=== PATIENT | male | born 1965 | race Caucasian/White ===

== ENCOUNTER 2021-08-23 19:03 | Emergency (ER) | payer SELFPAY ==
[2021-08-23 19:27] VITALS: BP 155/76; PULSE 108; RESP 20; TEMP 36.8; O2SAT 99
--- NOTE | 2021-08-23 19:35 | ED.LOWEXIN ---
HPI - Extremity Injury (Lower) General Chief Complaint: Extremity Problem,Nontraumatic Stated Complaint: Lt Foot Pain Source: patient Mode of arrival: ambulatory Limitations: no limitations History of Present Illness HPI Narrative: Patient is a 55-year-old male who presents complaining of left great toe pain. He reports toe infection x3 days. He reports possible ingrown toenail. He reports redness, tenderness and drainage. Patient reports a history of diabetes. He denies taking any mlhz-mmb-qaeduvr pain medications prior to arrival. Review of Systems Review of Systems: CONSTITUTIONAL: Denies fever, chills, or sweats. EYES: Denies visual changes, redness, or discharge. ENT: Denies rhinorrhea, congestion, sore throat, or otalgia. CARDIOVASCULAR: Denies chest pain, palpitations, or edema. RESPIRATORY: Denies cough or dyspnea. GASTROINTESTINAL: Denies abdominal pain, nausea, vomiting, or diarrhea. GENITOURINARY: Denies dysuria or hematuria. SKIN: Left great toe infection MUSCULOSKELETAL: Denies back pain, joint pain, or myalgia. NEUROLOGIC: Denies headache, numbness, dizziness, or weakness. PSYCHIATRIC: Denies anxiety or depression. [facility] Past Medical History Medical History (Updated 08/23/21 @ 19:47 by TREVOR Mcfarland) Diabetes Social History Social History (Updated 08/23/21 @ 19:43 by TREVOR Mcfarland) Smoking status: Never smoker Alcohol intake: never Substance use: never Living arrangements: with family Occupation/Education: occupation Gender identity (if verbalized by the patient): Male Comments At the time of signature, I have reviewed and agree with nursing past medical, surgical, social, and family history unless otherwise noted. Please see nursing chart for further information. There is no relevant family history pertinent to the presenting complaint. Exam Narrative: GENERAL: Well-appearing, well-nourished, and in no acute distress. HEAD: Normocephalic, atraumatic. EYES: EOMI. No redness or drainage. Conjunctiva are normal. ENT: Mucous membranes pink and moist. CHEST: No respiratory distress. HEART: Regular rate and rhythm. EXTREMITIES: Normal range of motion. SKIN: Warm, erythema, edema and tenderness to left great toe, drainage noted. NEURO: No focal deficits. Alert and oriented x3. Gait steady. PSYCH: Normal affect. No signs of depression or anxiety. Course Vital Signs Vital signs: Vital Signs Temperature 36.8 C 08/23/21 19:27 Pulse Rate 108 H 08/23/21 19:27 Respiratory Rate 20 08/23/21 19:27 Blood Pressure 155/76 H 08/23/21 19:27 Pulse Oximetry 99 08/23/21 19:27 Temperature 36.8 C 08/23/21 19:27 Pulse Rate 108 H 08/23/21 19:27 Respiratory Rate 20 08/23/21 19:27 Blood Pressure 155/76 H 08/23/21 19:27 Pulse Oximetry 99 08/23/21 19:27 Reviewed. Patient has been instructed to follow-up with his PCP regarding his blood pressure. Transfer Transfered to: [facility] Transportation: Other (Private vehicle, driving) Transfer rationale: Higher level of care Accepting physician: Dr. Odonnell Transfer comments: Patient transferred by private vehicle to [facility] for further evaluation of left great toe infection. Patient is aware the need to go to the emergency department immediately. Patient agrees with plan of care. Patient is stable for transfer. MDM - Extremity Injury (Lower) MDM Narrative Medical decision making narrative: Patient to have further evaluation of left great toe at [facility]. Family requested [facility] as patient's works there. Patient reports that he will go directly to hospital at this time for further evaluation. Patient is stable for transfer and is aware the need for evaluation of left great toe this p.m. Differential Diagnosis Differential diagnosis: Likely other (Sprain, strain, fracture, contusion, infection) Critical Care Time Critical Care Time Critical Care Time:
== END 2021-08-23 19:46 | disposition short-term general hospital (02) ==
PROVIDERS: Emergency Provider Nurse Practitioner
DX: L08.9 Local infection of the skin and subcutaneous tissue, unspecified (principal); E11.9 Type 2 diabetes mellitus without complications
CPT/HCPCS: 99212; G0463

== ENCOUNTER 2025-03-04 00:53 | Day surgery (SDC) | payer BC, SELFPAY ==
[2025-02-23 14:54] VITALS: BMI 35.4
--- NOTE | 2025-02-23 15:08 | SUR.PREOP ---
Spoke with patient in regards to Plavix. He verbalized understanding that his last dose is to be taken on 02/27/2025 and will be informed by endoscopist when to resume after procedure is done.
--- OUTSIDE RECORDS SUMMARY | 2025-03-04 00:56 | XMS_ITS | Clinical Summary ---
Author Organization [facility] Address [address] [place] [address] Care Team Providers Care Cover Machine Operator Name Role Phone Unavailable Primary Care Provider Unavailabl e Social History Tobacco Use Types Packs/Day Years Used Date Smoking Tobacco: Never Assessed Sex and Gender Information Value Date Recorded Sex Assigned at Not on file Legal Sex Male 9:12 AM CDT Gender Identity Not on file Sexual Orientation Not on file Plan of Treatment Health Maintenance Due Date Last Done Comments DIABETES ANNUAL FOOT EXAM 1984 DIABETES MICROALBUMIN ANNUAL SCREEN 1984 LDL CHOLESTEROL ANNUAL 1984 DTAP/TDAP/TD VACCINES (1 - Tdap) 1985 HEPATITIS B VACCINES (1 of 3 - 19+ 3-dose series) 1985 COLORECTAL SCREENING 12/17/2011 Colorectal Cancer Screening 12/17/2011 FIT-DNA Q 3 years 12/17/2011 FIT/FOBT Q 1 year 12/17/2011 Flex Sig/CT Colonography Q 5 years 12/17/2011 ZOSTER VACCINE (1 of 2) 2016 DIABETES ANNUAL RETINAL EXAM 06/29/2023 06/29/2022, 06/29/2022 INFLUENZA VACCINE (#1) 2024 COVID-19 Vaccine ( season) 2024, 05/01/2021 DIABETES HBA1C Q 6 MONTHS 06/12/2025 12/10/2024, Insurance [facility] ANTH BLUE ACCESS
--- OUTSIDE RECORDS SUMMARY | 2025-03-04 00:56 | XMS_ITS | Referral Summary ---
Author Organization [facility] Address [address] [place] [address] Care Team Providers Care Control Tower Radio Operator Name Role Phone No, Physician Primary Care Provider [phone] Allergies No known active allergies Medications insulin NPH (HumuLIN N, NovoLIN N) 100 unit/mL (3 mL) pen for injection Inject 42 Units under the skin 2 (two) times a day Active insulin regular (HumuLIN R, NovoLIN R) 100 unit/mL vial for injection Inject under the skin 2 (two) times a day Sliding Scale Usually 10 units am in 10 units with dinner Active Active Problems Problem Noted Date Diagnosed Date Age-related nuclear cataract of both eyes 2021 Assessment & Plan (06/29/2022 10:39 AM CDT): See Dr. Rosales Assessment & Plan (05/04/2022 10:52 AM CDT): BCVA today 20/40 OD, BCVA 20/30 OS Released new SRx today Can f/u for CE eval in future PRN Assessment & Plan (04/27/2022 10:24 AM CDT): May be worsening after vitrectomy surgery, recommended he see his local eye doctor, for a new refraction. If this does not help it is possible that he may benefit from cataract surgery in the near future. He currently does not have a local olive knocker, will arrange for him to see optometry service at [facility] in the near future. Vitreous hemorrhage, right 02/28/2022 Overview (02/28/2022): Added automatically from request for surgery [id number] Assessment & Plan (06/29/2022 10:39 AM CDT): Status post vitrectomy surgery, doing well. Recommend observation. Assessment & Plan (04/27/2022 10:23 AM CDT): Status post vitrectomy surgery, doing well. Recommend observation. Assessment & Plan (03/29/2022 9:31 AM CDT): One week status post PPV/MP/EL/AFx to the right eye on 03/21/22. Taper pred forte (PF) by reducing it by one drop a day each week. Stop tobramycin Return to clinic in one month. Signs and symptoms of retinal detachment, tears and endophthalmitis, elevated pressure reviewed with patient. Post Op Position:None. Altitude precautions were reviewed with patient.. Assessment & Plan (03/22/2022 8:59 AM CDT): One day status post PPV/MP/EL/AFx to the right eye on 03/21/22. Doing well. Reviewed surgery and need for MS with pt. Shield operated eye, Tobramycin 4x/day, Predforte 4x/day and Taper pred forte (PF) by reducing it by one drop a day each week Return to clinic in one week. Signs and symptoms of retinal detachment, tears and endophthalmitis, elevated pressure reviewed with patient. Post Op Position:None. Altitude precautions were reviewed with patient. No strenuous activity. . Type 2 diabetes mellitus Overview (10/31/2021): Diabetes type 2 Assessment & Plan (06/29/2022 10:40 AM CDT): Status post panretinal photocoagulation to both eyes, status post vitrectomy surgery right eye. Stable today, discussed importance of blood sugar blood pressure control, and encouraged him to get a primary care doctor so that these things can be managed. Recommend follow up with Dr. Rosales in 3 months. Assessment & Plan (04/27/2022 10:22 AM CDT): Status post panretinal photocoagulation to both eyes, status post vitrectomy surgery right eye. Stable today, discussed importance of blood sugar blood pressure control, and encouraged him to get a primary care doctor so that these things can be managed. Assessment & Plan (02/27/2022 4:52 PM CDT): With persistent vitreous hemorrhage right eye despite intravitreal Eylea. Discussed PPV vs intra-vitreal injection. He is now ready to proceed with PPV surgery OD. PPV/Laser/+/-gas OD 90 min Local mac Has had COVID vaccine Risks, benefits and alternatives for surgery include by not limited to infection, bleeding, damage to the eye, loss of vision, loss of the eye,deformity, diplopia, increased IOP, cataract, need for new refraction, RD, RT, gas injection, post op positioning, altitude precautions, silicone oil placement, need for additional surgery, inflammation to one or both eyes, no guarantees were made, and the guarded prognosis was discussed with the patient. 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 Will repeat injection with Eylea today to the right eye, while waiting for PPV surgery, Risks, benefits, alternatives with the patient. Patient wished to proceed. The left eye is status post panretinal photocoagulation, appears fairly stable at this time. Importance of blood sugar and blood pressure control again reviewed with the patient. RE-EMPHASIZED -seeking a primary care doctor in the near future to get back on his insulin therapy. Assessment & Plan (01/30/2022 4:35 PM CDT): With persistent vitreous hemorrhage right eye despite intravitreal Eylea. Discussed PPV vs intra-vitreal injection. Pt wishes repeat injection with Eylea today to the right eye. Risks, benefits, alternatives with the patient. Patient wished to proceed. The left eye is status post panretinal photocoagulation, appears fairly stable at this time. Importance of blood sugar and blood pressure control again reviewed with the patient. RE-EMPHASIZED -seeking a primary care doctor in the near future to get back on his insulin therapy. Assessment & Plan (01/02/2022 4:18 PM CDT): With persistent vitreous hemorrhage right eye despite intravitreal Eylea. Discussed PPV vs intra-vitreal injection. Pt wishes repeat injection with Eylea today to the right eye. Risks, benefits, alternatives with the patient. Patient wished to proceed. The left eye is status post panretinal photocoagulation, appears fairly stable at this time. Importance of blood sugar and blood pressure control again reviewed with the patient. He will be seeking a primary care doctor in the near future to get back on his insulin therapy. Assessment & Plan (12/01/2021 9:02 AM CABIN AGENT): With persistent vitreous hemorrhage right eye despite intravitreal Eylea injection on October 31. Recommend repeat injection with Eylea today to the right eye. Risks, benefits, alternatives with the patient. Patient wished to proceed. We discussed the possibility of vitrectomy surgery however he would like to observe for now. The left eye is status post panretinal photocoagulation, appears fairly stable at this time. Assessment & Plan (11/21/2021 3:13 PM CABIN AGENT): With persistent vitreous hemorrhage right eye despite intravitreal Eylea injection on October 31. As it has been less than a month, will hold off on repeating injection will re-evaluate roughly 2 weeks time. If the vitreous hemorrhage persists will repeat injection and consider vitrectomy surgery in the right eye. Recommend additional panretinal photocoagulation to the left eye as planned. R/B/A reviewed. Pt wishes to proceed. Assessment & Plan (11/09/2021 11:10 AM CABIN AGENT): For PRP in the left eye today. Risks, benefits, alternatives reviewed the patient. Patient wished to proceed. PRP was applied left eye today without complication. I have asked him to return to see us roughly 2 weeks time, we will dilate both eyes at that time. Will add panretinal photocoagulation to the left eye at that visit. If he has persistent vitreous hemorrhage in the right eye at that visit, will inject the right eye with Eylea and plan for vitrectomy surgery in the near future. Assessment & Plan (10/31/2021 4:37 PM CABIN AGENT): Patient has a history of type 2 diabetes, has required the use of insulin for many years. Has not been able to see his primary care doctor or checked or checked his blood sugars over several years. He presents today with a few day history of decreased vision in the right eye and a vitreous hemorrhage. In the left eye there is severe diabetic retinopathy, I highly suspect there was also proliferative retinopathy in the left eye. I believe that the vitreous hemorrhage in the right eye is due to proliferative retinopathy. We discussed possibility of fluorescein angiography today to discern if there is neovascularization in the left eye, followed by anti-VEGF injection to the right eye. If the vitreous hemorrhage does not clear in the right eye he may need to have vitrectomy surgery in the right eye. If we find neovascularization on the angiogram in the left eye may need to institute anti VEGF therapy or panretinal photocoagulation to the left eye as well. We have arranged to give him a sample of Eylea to the right eye today, angiography demonstrates neovascularization of the disc in severe areas of non perfusion the periphery of the left eye. Will perform panretinal photocoagulation of the left eye in a week. Risks, benefits, alternatives to therapy were reviewed with patient. Patient wished to proceed. Social History Tobacco Use Types Packs/Day Years Used Date Smoking Tobacco: Never Smokeless Tobacco: Never AUDIT-C Answer Date Recorded Q1: How often do you have a drink containing alc ohol? 2-4 times a month 03/09/2022 Q2: How many drinks containi ng alcohol do you have on a typical day when you are drinking? 1 or 2 03/09/2022 Q3: How often do you have si x or more drinks on one occasion? Never 03/09/2022 Sex and Gender Information Value Date Recorded Sex Assigned at Not on file Legal Sex Male 4:09 AM CABIN AGENT Gender Identity Not on file Sexual Orientation Not on file Last Filed Vital Signs Vital Sign Reading Time Taken Comments Blood Pressure 110/62 03/21/2022 10:30 AM CDT Pulse 90 03/21/2022 10:30 AM CDT Temperature 36.2 C (97.2 F) 03/21/2022 10:21 AM CDT Respiratory Rate 13 03/21/2022 10:30 AM CDT Oxygen Saturation 96% 03/21/2022 10:30 AM CDT Inhaled Oxygen Concentration - - Weight 99.8 kg (220 lb) 03/09/2022 10:10 AM CDT Height 175.3 cm (5' 9) 03/09/2022 10:10 AM CDT Body Mass Index 32.49 03/09/2022 10:10 AM CDT Plan of Treatment Not on file Procedures Procedure Name Priority Date/Time Associated Diagnosis Comments EGFR STAT 10/29/2021 1:48 PM CABIN AGENT from Last 3 Months or Most Recently Relevant to Health Maintenance Results * eGFR (10/29/2021 1:48 PM CABIN AGENT) eGFR >90 90 - 130 mL/min/1. 73 m2 [facility] Comment: Interpretive Data Reference Interval Normal >/= 90 mL/min/1.73m2 Mildly decreased* 60 - 89 mL/min/1.73m2 Mildly to moderately decreased 45 - 59 mL/min/1.73m2 Moderately to severely decreased 30 - 44 mL/min/1.73m2 Severely decreased 15 - 29 mL/min/1.73m2 Kidney Failure < 15 mL/min/1.73m2 *Relative to young adult level Estimated glomerular filtration rate is determined by the 2020 CKD-EPI equation recommended by the National Kidney Foundation (A Unifying Approach to GFR Estimation: Recommendations of the NKF-ASK Task Force on Reassessing the Inclusion of Race in Diagnosing Kidney Disease, JASN 2020). The CKD-EPI equation should not be used for patients with unstable renal function and has not been validated in children and those over 70. Current interpretive data was last reviewed 2021. Blood 10/29/2021 1:48 PM CABIN AGENT 10/29/2021 2:01 PM CABIN AGENT us Marlyn Gonzalez MD LAB BLOOD ORDERA BLES Final Result [facility] Department [place] [address] from Last 3 Months or Most Recently Relevant to Health Maintenance Care Teams Control Tower Radio Operator Relationship Specialty Start Date End Date No, Physician PCP - General 03/13/22
--- OUTSIDE RECORDS SUMMARY | 2025-03-04 00:57 | XMS_ITS | Clinical Summary ---
Author Organization [facility] Address [address] [place] [address] Care Team Providers Care Sieve Maker Name Role Phone No, Physician Primary Care Provider Allergies No known active allergies Medications insulin [...] He currently does not have a local activity therapy specialist, will arrange for him to see optometry service at [facility] in the near future. Vitreous hemorrhage, right 02/28/2022 Overview (02/28/2022): Added automatically from request for surgery [id number] Assessment & Plan (06/29/2022 10:39 AM CDT): [...] therapy. Assessment & Plan (12/01/2021 9:02 AM PUNCHBOARD FILLING MACHINE OPERATOR): With persistent vitreous hemorrhage right eye despite [...] time. Assessment & Plan (11/21/2021 3:13 PM PUNCHBOARD FILLING MACHINE OPERATOR): With persistent vitreous hemorrhage right eye despite [...] proceed. Assessment & Plan (11/09/2021 11:10 AM PUNCHBOARD FILLING MACHINE OPERATOR): For PRP in the left eye today. [...] future. Assessment & Plan (10/31/2021 4:37 PM PUNCHBOARD FILLING MACHINE OPERATOR): Patient has a history of type 2 [...] reviewed with patient. Patient wished to proceed. Surgical History Surgery Date Site/Laterality Comments WISDOM TOOTH EXTRACTION Medical History Medical History Date Comments Type 2 diabetes mellitus (HCC) D iabetes type 2 Family History Medical History Relation Name Comments Cataracts Father Cataracts Mother Diabetes Mother Heart failure Mother Hypertension Mother Diabetes Sister Amblyopia Neg Hx Anesthesia problems Neg Hx Blindness Neg Hx Cancer Neg Hx Fuchs' dystrophy Neg Hx Glaucoma Neg Hx Macular degeneration Neg Hx Retinal detachment Neg Hx Strabismus Neg Hx Stroke Neg Hx Thyroid disease Neg Hx Relation Name Status Comments Father Mother Sister Social History Tobacco Use Types Packs/Day Years [...] on file Legal Sex Male 4:09 AM PUNCHBOARD FILLING MACHINE OPERATOR Gender Identity Not on file Sexual Orientation Not on file Obstetrics History Last Filed Vital Signs Vital Sign Reading [...] 03/09/2022 10:10 AM CDT Plan of Treatment Health Maintenance Due Date Last Done Comments Albumin Creatinine Ratio, Urine 1966 Colon Cancer Screening-Colonoscopy 1966 Depression Screening 1966 Hemoglobin A1C 1966 Hepatitis C Screening 1966 Prostate Cancer Screening-PSA 1966 Foot Exam 1966 Lipid Panel 1966 DTaP/Tdap/Td Vaccine (1 - Tdap) 1977 Hepatitis B Screening 1984 Regular Well Visit/Exam 18-64 1984 Pneumococcal vaccine <65 (1 of 2 - PCV) 1985 Zoster Vaccine (1 of 2) 2016 eGFR 10/29/2022 10/29/2021 Dilated Eye Exam 06/29/2023 06/29/2022, , 03/29/2022, Additional history exists Covid-19 Vaccine ( - 2023-2 5 season) 2024 11/20/2021, 05/22/2021, 05/01/2021 Influenza Vaccine (Season Ended) 2025 Procedures Procedure Name Priority Date/Time Associated Diagnosis Comments EGFR STAT 10/29/2021 1:48 PM PUNCHBOARD FILLING MACHINE OPERATOR from Last 3 Months or Most Recently Relevant to Health Maintenance Results * eGFR (10/29/2021 1:48 PM PUNCHBOARD FILLING MACHINE OPERATOR) eGFR >90 90 - 130 mL/min/1. 73 [...] last reviewed 2021. Blood 10/29/2021 1:48 PM PUNCHBOARD FILLING MACHINE OPERATOR 10/29/2021 2:01 PM PUNCHBOARD FILLING MACHINE OPERATOR us Marlyn Gonzalez MD LAB BLOOD ORDERA BLES Final Result [facility] Department [place] [address] from Last 3 Months or Most Recently Relevant to Health Maintenance Care Teams Sieve Maker Relationship Specialty Start Date End Date No, Physician PCP - General 03/13/22
--- OUTSIDE RECORDS SUMMARY | 2025-03-04 00:57 | XMS_ITS | Encounter Summary ---
Author Organization [facility] Address [address] [place] [address] Phone Care Team Providers Care Seasonal Tax Preparer Name Role Phone Scott Woodson MD Primary Care Provider [phone] No, Physician Primary Care Provider [phone] Encounter Details Date Type Department Care Team (Late st Contact Info) Description 10/29/2021 Ophth Exam [facility] [address] [place] [address] [address] [place] [address] Brett Christian MD [address] [place] [address] [place], [place] [id number] Social History Tobacco Use Types Packs/Day Years Used Date Smoking Tobacco: Never Smokeless Tobacco: Never AUDIT-C Answer Date Recorded Q1: How often do you have a drink containing alc ohol? 2-4 times a month 10/31/2021 Q2: How many drinks containi ng alcohol do you have on a typical day when you are drinking? 1 or 2 10/31/2021 Q3: How often do you have si x or more drinks on one occasion? Never 10/31/2021 Sex and Gender Information Value Date Recorded Sex Assigned at Not on file Legal Sex Male 4:09 AM ORGANIC GARDENING TEACHER Gender Identity Not on file Sexual Orientation Not on file documented as of this encounter Functional Status documented as of this encounter Plan of Treatment Not on file documented as of this encounter Visit Diagnoses Not on filedocumented in this encounter Eye Exam Visual Acuity Right eye Left eye Near cc HM PHNI 20/20 Tonometry (Tonopen, 3:12 PM) Right eye Left eye Pressure 20 18 Pupils Dark Light Shape React APD Right eye 5 3 Round Brisk None Left eye 5 3 Round Brisk None Visual Armenta Right eye Left eye Full Restrictions Total superior tempo ral, inferior temporal, superior nasal, inferior nasal deficiencies Extraocular Movement Right eye Left eye Full, Ortho Full, Ortho Neuro/Psych Oriented x3: Yes Mood/Affect: Normal Dilation Both eyes: 2.5% Phenylephrin e, 1% Tropicamide @ 4:21 PM External Exam Right eye Left eye External Normal Normal Slit Lamp Exam Right eye Left eye Lids/Lashes Normal Normal Conjunctiva/Sclera White and quiet White and amalia et Cornea Clear Clear Anterior Chamber Deep and Quiet Deep and Quiet Iris Round and reactive, no NVI Round and reactive, no NVI Lens 2+ NS, 3+ PSC 2+ NS, 2+ PSC Vitreous Normal Normal Fundus Exam Right eye Left eye Disc no view Sharp margins, n o elevation C/D Ratio - 0.4 Macula - DBH, flat attach ed Vessels - attenuated Periphery - numerous DBH 360 , hypopigmented chronic appearing scar at 9 oclock, attached Care Teams Seasonal Tax Preparer Relationship Specialty Start Date End Date Scott Woodson MD [address] [place] [address] PCP - General 10/29/21 03/12/22 No, Physician PCP - General 03/13/22 documented as of this encounter
--- OUTSIDE RECORDS SUMMARY | 2025-03-04 00:57 | XMS_ITS | Data Portability ---
Author Organization [facility] STEVENAmarilis Crews Address [address] [place] [address] Care Team Providers Care Hides Inspector Name Role Phone ADILIA CHRISTIANSON Primary Care Provider Assessment No assessment recorded. Plan of Treatment Reminders Order Date Submit Date Provider Last Modified By Organization Details Last Modified Time Details Appointments None recorde d. Lab HbA1c (hemogl obin A1c), blood 2024 025 [email or web address] In-Office Order, Internal Use Only DO Not Attach Compendium DO Not Attach Compendium, Do Not Delete/merge, [id number] 09:21:49 microal bumin/c reatini ne, mass ratio, urine 2024 025 ESTEVAN BORGES, [address] [place] [address], [address], [place], [address], 5 04:10:25 CMP, serum or plasma 2024 025 ESTEVAN BORGES, [address] [place] [address], [address], [place], [address], 5 04:10:26 HbA1c (hemogl obin A1c), blood 2023 024 [email or web address] In-Office Order, Internal Use Only DO Not Attach Compendium DO Not Attach Compendium, Do Not Delete/merge, [id number] 17:15:39 basic metabol ic 1998 panel, serum or plasma 2023 024 ESTEVANLARRY BORGES, [address] [place] [address], [address], [place], [address], 4 08:34:22 microal bumin/c reatini ne, mass ratio, urine 2023 024 ESTEVAN [facility], [address], [address], [place], [address], 4 08:34:21 Referral gastroe nterolo gist referra l - Dysphag ia to solids for >2 years, also needs screeni ng colonos copy 2024 025 [facility] Gastroenterol [facility], [address], [address], [place], [address], 5 14:53:23 endocri nology referra l - IDDM on insulin with CGM. 2023 024 dianams Wallace Referrals, [address] [facility], [place], [address], 4 09:17:31 Procedures None recorde d. Surgeries None recorde d. Imaging barium swallow study - Assess for achalas ia strictu re etc, dysphag ia to solids 2024 025 otto [facility] Scheduling, [address] [facility], [place], [address], 5 12:03:39 Medication Orders Basagla r KwikPen U-100 Insulin 100 unit/mL (3 mL) subcuta neous 2024 025 [id number], [address] , [place], [place], [id number], 5 09:30:23 insulin lispro (U-100) 100 unit/mL subcuta neous pen 2024 025 [id number], [address], [place], [place], [id number], 5 09:30:22 losarta n 25 mg tablet 2024 025 [facility] #81094, [address], [place], [place], [id number], 5 09:30:24 Ciprode x 0.3 %-0.1 % ear drops,s uspensi on 2023 025 [facility] #24984, [address], [place], [place], [id number], 5 09:15:31 Lantus Solosta r U-100 Insulin 100 unit/mL (3 mL) subcuta neous pen 2023 024 [email or web address] [facility] #02471, [address], [place], [place], [id number], 4 17:50:16 Patient TargetsNo targets recorded. Patient Instructions Encounter Date Encounter Id Patient Instructions Last Modified By Organization Details Last Modified Time 02/08/2024 [id number] I was present and available in the family medicine clinic to discuss the patient's care during the appointment and the case was discussed with me. I agree with the resident's assessment and plan as documented. While Type 1 DM not clear? Consider eval for true status of his disease. He might benefit for SGLT2 and/or GLP1, though with increase risk of hypoglycemia. HL [email or web address] Not available 02/10/2024 11:22:45 03/17/2024 [id number] Case was discussed with me in the Teach Room on date of encounter. I agree with residents assessment and plan of care as docuemented above with any exceptions/addit ions noted below if necessary. All labs/rads/consul ts to be followed by ordering provider. Arianna Lewis DO Family Medicine Physician [email or web address] Not available 03/19/2024 13:02:29 04/15/2024 [id number] I certify that I was present for case discussion in the Family Medicine preceptor room at the time of this encounter. I have reviewed the note and agree with the findings, assessment, and plan except as I have documented below. Follow up as listed. All labs/imaging/con sults to be followed by the ordering provider. Capt Juan, [facility], Staff Physician. [email or web address] Not available 04/16/2024 13:07:38 10/14/2024 [id number] A healthy lifestyle: care instructions [email or web address] Not available 10/14/2024 09:30:14 Case was discussed with me in the Teach Room on date of encounter. I agree with residents assessment and plan of care as docuemented above with any exceptions/addit ions noted below if necessary. All labs/rads/consul ts to be followed by ordering provider. Arianna Lewis DO Family Medicine Physician [email or web address] Not available 10/14/2024 09:42:27 01/14/2025 [id number] I was present and available in the Family Medicine clinic to discuss this patient's care during the appointment. I agree with the resident's assessment and plan as documented. KGR [email or web address] Not available 01/20/2025 15:28:00 Reason for Referral Endocrinology Referral for T ype 1 diabetes mellitus IDDM on insulin with CGM. IDDM on insulin with CGM. Referring Physician: Leticia Crabtree, Admissions Dean, Encounter Date: 04/15/2024 Title Clerk Referral for Dysphagia Dysphagia to solids for >2 years, also needs screening colonoscopy Dysphagia to solids for >2 years, also needs screening colonoscopy Referring Physician: Leticia Crabtree Admissions Dean, Encounter Date: 01/14/2025 Results Created Date Observation Date Name Description Value Unit Range Abnormal Flag Note LastModifiedBy Organization Detail LastModifiedTime 02/08/20 24 02/08/2024 HbA1c (hemo globi n A1c), blood HbA1c 8.7 Not Available In-Office Order Internal Use Only DO Not Attach Compendium DO Not Attach Compendium, Do Not Delete/merge, [id number] 02/08/2024 10:16:53 03/14/20 24 03/15/2024 ALBUM IN/CR EAT RATIO , RANDO M UR creatinine, urine 114.8 mg/dL notest ab. Not Available [facility] ([facility]) [address] [place], [address], 03/15/2024 08:34:21 03/14/20 24 03/15/2024 ALBUM IN/CR EAT RATIO , FRANCESCA M UR albumin, urine 24.8 ug/mL notest ab. Not Available [facility] ([facility]) [address] [place], [address], 03/15/2024 08:34:21 03/14/20 24 03/15/2024 ALBUM IN/CR EAT RATIO , RANDO M UR alb/creat ratio 22 mg/g_ creat 0-29 Jeannine l: 0 - 29 Moder ately incre ased: 30 - 300 Sever xiang incre ased: >300 Not Available [facility] ([facility]) [address] [place], [address], 03/15/2024 08:34:21 03/14/20 24 03/15/2024 BASIC METAB OLIC PANEL (7) glucose 74 mg/dL 70-99 Not Available [facility] ([facility]) [address] [place], [address], 03/15/2024 08:34:22 03/14/20 24 03/15/2024 BASIC METAB OLIC PANEL (7) BUN 20 mg/dL 6-24 Not Available [facility] ([facility]) [address] [place], [address], 03/15/2024 08:34:22 03/14/20 24 03/15/2024 BASIC METAB OLIC PANEL (7) creatinine 0.79 mg/dL 0.76-1 .27 Not Available [facility] ([facility]) [address] [place], [address], 03/15/2024 08:34:22 03/14/20 24 03/15/2024 BASIC METAB OLIC PANEL (7) eGFR 104 mL/mi n/1.7 3 >59 Not Available [facility] ([facility]) [address] [place], [address], 03/15/2024 08:34:22 03/14/20 24 03/15/2024 BASIC METAB OLIC PANEL (7) BUN/creatini ne ratio 25 9-20 above high normal Not Available [facility] ([facility]) [address] [place], [address], 03/15/2024 08:34:22 03/14/20 24 03/15/2024 BASIC METAB OLIC PANEL (7) sodium 140 mmol/ L 134-14 4 Not Available [facility] ([facility]) [address] [place], [address], 03/15/2024 08:34:22 03/14/20 24 03/15/2024 BASIC METAB OLIC PANEL (7) potassium 4.3 mmol/ L 3.5-5. 2 Not Available [facility] ([facility]) [address] [place], [address], 03/15/2024 08:34:22 03/14/20 24 03/15/2024 BASIC METAB OLIC PANEL (7) chloride 102 mmol/ L 96-106 Not Available [facility] ([facility]) [address] [place], [address], 03/15/2024 08:34:22 03/14/20 24 03/15/2024 BASIC METAB OLIC PANEL (7) carbon dioxide, total 24 mmol/ L 20-29 Not Available [facility] ([facility]) [address] [place], [address], 03/15/2024 08:34:22 03/14/20 24 03/15/2024 HEMOG LOBIN A1C hemoglobin A1C 9.0 % 4.8-5. 6 above high normal Predi abete s: 5.7 - 6.4 Diabe aliyah: >6.4 Glyce rubio contr ol for adult s with diabe aliyah: <7.0 Not Available [facility] ([facility]) [address] [facility], [place], [address], 03/15/2024 08:34:22 08/30/20 24 08/30/2024 BASIC METAB OLIC PANEL glucose 178 mg/dL 70-99 high Not Available [facility] (Lab) [address] [facility], [place], [address], 08/30/2024 12:29:14 08/30/20 24 08/30/2024 BASIC METAB OLIC PANEL BUN 12 mg/dL 7-18 Not Available [facility] (Lab) [address] [facility], [place], [address], 08/30/2024 12:29:14 08/30/20 24 08/30/2024 BASIC METAB OLIC PANEL creatinine 0.73 mg/dL 0.7-1. 3 Not Available [facility] (Lab) [address] [facility], [place], [address], 08/30/2024 12:29:14 08/30/20 24 08/30/2024 BASIC METAB OLIC PANEL sodium 138 mmol/ L 136-14 5 Not Available [facility] (Lab) [place], [address], 08/30/2024 12:29:14 08/30/20 24 08/30/2024 BASIC METAB OLIC PANEL potassium 4.8 mmol/ L 3.5-5. 1 Not Available [facility] (Lab) [place], [address], 08/30/2024 12:29:14 08/30/20 24 08/30/2024 BASIC METAB OLIC PANEL chloride 106 mmol/ L 97-115 Not Available [facility] (Lab) [place], [address], 08/30/2024 12:29:14 08/30/20 24 08/30/2024 BASIC METAB OLIC PANEL total CO2 30.9 mmol/ L 21-32 Not Available [facility] (Lab) [place], [address], 08/30/2024 12:29:14 08/30/20 24 08/30/2024 BASIC METAB OLIC PANEL calcium 8.8 mg/dL 8.5-10 .1 Not Available [facility] (Lab) [place], [address], 08/30/2024 12:29:14 08/30/20 24 08/30/2024 BASIC METAB OLIC PANEL anion gap 1.1 mmol/ L 2-10 low Not Available [facility] (Lab) [address], [place], [address], 08/30/2024 12:29:14 08/30/20 24 08/30/2024 BASIC METAB OLIC PANEL BUN creatinine ratio 16.5 6-26 Not Available [facility] (Lab) [place], [address], 08/30/2024 12:29:14 08/30/2008/30/2024 BASIC METAB OLIC PANEL est GFR >90 mL/mi n/1.7 3_M2 >90 NOTE: eGFR is not calcu lated for patie nts <18 years of age or gende r unkno wn. This is an estim ated GFR calcu latio n using the new CKD EPI creat inine equat ion witho ut race and so does not requi re a corre ction facto r for race. This estim ated GFR shoul d not be used for calcu latin g drug doses . Not Available [facility] (Lab) [facility] [place], [address], 08/30/2024 12:29:14 08/30/20 24 08/30/2024 LIPID PANEL cholesterol 136 mg/dL <200 Not Available [facility] (Lab) [address], [place], [address], 08/30/2024 12:29:15 08/30/2008/30/2024 LIPID PANEL triglyceride 66 mg/dL <150 Not Available [facility] (Lab) [address], [place], [address], 08/30/2024 12:29:15 08/30/2008/30/2024 LIPID PANEL HDL cholesterol 66 mg/dL >40.0 Not Available [facility] (Lab) [address], [place], [address], 08/30/2024 12:29:15 08/30/20 24 08/30/2024 LIPID PANEL LDL calculated 57 mg/dL <100 Not Available [facility] (Lab) [address], [place], [address], 08/30/2024 12:29:15 08/30/20 24 08/30/2024 LIPID PANEL non HDL cholesterol 70 mg/dL <130 Not Available [facility] (Lab) [address], [place], [address], 08/30/2024 12:29:15 08/30/20 24 08/30/2024 LIPID PANEL chol/HDL ratio 2.1 0.0-4. 5 Not Available [facility] (Lab) [address], [place], [address], 08/30/2024 12:29:15 08/30/20 24 08/30/2024 LIPID PANEL VLDL 13 mg/dL 5-55 Not Available [facility] (Lab) [address] [facility], [place], [address], 08/30/2024 12:29:15 08/30/20 24 08/30/2024 LIPID PANEL interpretati on NIH DONNY NSUS REPOR T RECOM MENDA TIONS : ADULT CHILD LOW RISK: LENA STERO L <200 <170 TRIGL YCERI DE <150 --- HDL >=60 --- LDL <100 <110 BORDE RLINE : LENA STERO L 200-2 39 170-1 99 TRIGL YCERI DE 150-1 99 --- HDL 40-59 --- LDL 100-1 59 110-1 29 HIGH RISK: LENA STERO L >=240 >=200 TRIGL YCERI DE >=200 --- HDL <40 --- LDL >=160 >=130 Not Available [facility] (Lab) [address], [place], [address], 08/30/2024 12:29:15 10/14/19 25 10/16/2024 ALBUM IN/CR EAT RATIO , RANDO M UR creatinine, urine 128.6 mg/dL notest ab. Not Available [facility] ([facility]) [address] [place], [address], 10/16/2024 04:10:25 10/14/19 25 10/16/2024 ALBUM IN/CR EAT RATIO , RANDO M UR albumin, urine 65.3 ug/mL notest ab. Not Available [facility] ([facility]) [address] [place], [address], 10/16/2024 04:10:25 10/14/19 25 10/16/2024 ALBUM IN/CR EAT RATIO , RANDO M UR alb/creat ratio 51 mg/g_ creat 0-29 above high normal Jeannine l: 0 - 29 Moder ately incre ased: 30 - 300 Sever xiang incre ased: >300 Not Available [facility] ([facility]) [address] [facility] [place], [address], 10/16/2024 04:10:25 10/14/19 25 10/15/2024 COMP. METAB OLIC PANEL (14) glucose 149 mg/dL 70-99 above high normal Not Available [facility] ([facility]) [address] [facility] [place], [address], 10/16/2024 04:10:26 10/14/19 25 10/15/2024 COMP. METAB OLIC PANEL (14) BUN 11 mg/dL 6-24 Not Available [facility] ([facility]) [address] [facility] [place], [address], 10/16/2024 04:10:26 10/14/19 25 10/15/2024 COMP. METAB OLIC PANEL (14) creatinine 0.80 mg/dL 0.76-1 .27 Not Available [facility] ([facility]) [address] [facility] [place], [address], 10/16/2024 04:10:26 10/14/19 25 10/15/2024 COMP. METAB OLIC PANEL (14) eGFR 103 mL/mi n/1.7 3 >59 Not Available [facility] ([facility]) [address] [facility] [place], [address], 10/16/2024 04:10:26 10/14/19 25 10/15/2024 COMP. METAB OLIC PANEL (14) BUN/creatini ne ratio 14 9-20 Not Available [facility] ([facility]) [address] [facility] [place], [address], 10/16/2024 04:10:26 10/14/19 25 10/15/2024 COMP. METAB OLIC PANEL (14) sodium 142 mmol/ L 134-14 4 Not Available [facility] ([facility]) [address] [facility] [place], [address], 10/16/2024 04:10:26 10/14/19 25 10/15/2024 COMP. METAB OLIC PANEL (14) potassium 4.4 mmol/ L 3.5-5. 2 Not Available [facility] ([facility]) [address] [facility] [place], [address], 10/16/2024 04:10:26 10/14/19 25 10/15/2024 COMP. METAB OLIC PANEL (14) chloride 103 mmol/ L 96-106 Not Available [facility] ([facility]) [address] [facility] [place], [address], 10/16/2024 04:10:26 10/14/19 25 10/15/2024 COMP. METAB OLIC PANEL (14) carbon dioxide, total 24 mmol/ L 20-29 Not Available [facility] ([facility]) [address] [facility], [place], [address], 10/16/2024 04:10:26 10/14/19 25 10/15/2024 COMP. METAB OLIC PANEL (14) calcium 9.6 mg/dL 8.7-10 .2 Not Available [facility] ([facility]) [address] [facility] [place], [address], 10/16/2024 04:10:26 10/14/19 25 10/15/2024 COMP. METAB OLIC PANEL (14) protein, total 6.7 g/dL 6.0-8. 5 Not Available [facility] ([facility]) [address] [facility] [place], [address], 10/16/2024 04:10:26 10/14/19 25 10/15/2024 COMP. METAB OLIC PANEL (14) albumin 4.1 g/dL 3.8-4. 9 Not Available [facility] ([facility]) [address] [facility] [place], [address], 10/16/2024 04:10:26 10/14/19 25 10/15/2024 COMP. METAB OLIC PANEL (14) globulin, total 2.6 g/dL 1.5-4. 5 Not Available [facility] ([facility]) [address] [place], [address], 10/16/2024 04:10:26 10/14/19 25 10/15/2024 COMP. METAB OLIC PANEL (14) bilirubin, total 0.5 mg/dL 0.0-1. 2 Not Available [facility] ([facility]) [address] [place], [address], 10/16/2024 04:10:26 10/14/19 25 10/15/2024 COMP. METAB OLIC PANEL (14) alkaline phosphatase 24 IU/L 44-121 below low normal Not Available [facility] ([facility]) [address] [place], [address], 10/16/2024 04:10:26 10/14/19 25 10/15/2024 COMP. METAB OLIC PANEL (14) AST (SGOT) 21 IU/L 0-40 Not Available [facility] ([facility]) [address] [place], [address], 10/16/2024 04:10:26 10/14/19 25 10/15/2024 COMP. METAB OLIC PANEL (14) ALT (SGPT) 32 IU/L 0-44 Not Available [facility] ([facility]) [address] [place], [address], 10/16/2024 04:10:26 10/14/19 25 10/14/2024 HbA1c (hemo globi n A1c), blood HbA1c 8.4% Not Available In-Office Order Internal Use Only DO Not Attach Compendium DO Not Attach Compendium, Do Not Delete/merge, [id number] 10/14/2024 09:07:50 01/15/20 25 01/14/2025 MICRO ALB/C REAT RATIO creatinine, urine 71.3 mg/dL 39-259 Not Available [facility] (Lab) [place], [address], 01/14/2025 11:23:19 01/15/2001/14/2025 MICRO ALB/C REAT RATIO microalbumin , urine 5.7 mg/dL <2.0 high Not Available [facility] (Lab) [place], [address], 01/14/2025 11:23:19 01/15/20 25 01/14/2025 MICRO ALB/C REAT RATIO malb/creat ratio 80.2 mg/g <30 high Not Available [facility] (Lab) [place], [address], 01/14/2025 11:23:19 01/15/20 25 01/16/2025 C-PEP TIDE C-peptide <0.10 low Refer ence Range : 0.80 to 3.85 Unit: ng/mL Test Perfo rmed by Marsha Roy, [facility], [address] [employer] [place], [place] Mederos M.D., Ph.D. , [employer] , CLIA [id number] Not Available [facility] (Lab) [place], [address], 01/16/2025 22:19:32 01/15/20 25 01/18/2025 TRE-6 5 ANTIB ACACIA tre-65 antibody 58 high Refer ence Range : <5 Unit: IU/mL This test was perfo rmed using the GAD65 SUPA metho d, which is stand javier ed again st the Inter natio nal refer ence prepa ratio n 97/55 0. Test Perfo rmed by [facility] Marsha, [facility], [address] [place], [place] Patri mia Mederos M.D., Ph.D. , [employer] [employer] , CLIA [id number] Not Available [facility] (Lab) [address] [facility], [place], [address], 01/18/2025 17:49:48 09/29/20 24 ECG 12-le ad [facility] [place] [address] [facility] [place] [address], [place] Test Date: 2023-10 Pat Name: DEEJAY OCONNOR Depart ment: 41 Patien t ID: [id number] Room: [facility] Gender : Male Techni carol: : 1966-0 3-11 Reques manuela By: QUINCY Johnson Order Number : [id number] Rpahael nation MD: Clifford Soria Measur ements Interv als [place] Rate: 78 P: 57 KS: 164 QRS: -8 QRSD: 84 T: 65 QT: 367 QTc: 420 Interp retive Statem ents SINUS RHYTHM NONSPE CIFIC T-WAVE ABNORM ALITY Compar ed to ECG 2022 09:32: 35 T-wave abnorm ality now presen t Myocar dial infarc t findin g no longer presen t Electr onical ly signed by Clifford Soria at 2023 14:22: 27 CHIEF DEPUTY [email or web address] [facility] [address] [facility], [place], [address], 09/30/2024 18:03:20 Result Notes None recorded. Problems Name Problem SNOMED Code Status Onset Date Resolution Date Notes Provider Name and Address Organization Details Recorded Time Coronary atherosclerosi s 476772718 Active 2022 LOU Mitchell - [place] 11:47:55 Type 1 diabetes mellitus 27702348 Active 2022 Leticia Crabtree MD Attn: Fred nation,[address] [facility], [place], [address], [facility] - SI 4 10:16:44 History of coronary artery bypass grafting 324809007 Active 2022 Raphael donald, [place] - [place] 3 11:49:54 Essential hypertension 52000210 Active 2023 Leticia Crabtree MD Attn: Fred rios,[address] [facility], [place], [address], [facility] - SI 4 10:16:31 Problem Notes None recorded. Procedures Surgical History Date Name Laterality Status Provider Name and Address Organization Details Recorded Time 4 Diabetic Foot Exam completed Leticia Crabtree MD Attn: Accounting,[address] [place], [address], [facility] 02/08/2024 17:11:20 3 Diabetic Foot Exam completed Leticia Crabtree MD Attn: Accounting,[address] [facility], [place], [address], [facility] 05/28/2023 09:30:42 3 Diabetic Foot Exam completed Leticia Crabtree MD Attn: Accounting,[address] [place], [address], [facility] - SI 01/12/2023 16:38:05 coronary artery bypass grafts x 3 completed Osvaldo Pcikard MA [facility] 03/09/2023 11:13:09 Imaging Results None recorded. Procedure Notes None recorded. Medical Equipment None Reported. Allergies No known drug allergies Medications Name Sig Start Date Stop Date Status Note LastModified by Organization Details LastModified Time losartan 50 mg tablet Take 1 tablet every day by oral route. 03/09 completed Not Available Not Available Not Available furosemid e 40 mg tablet 03/09 completed Not Available Not Available Not Available atorvasta tin 80 mg tablet active Not Available Not Available Not Available doxycycli ne hyclate 100 mg capsule TAKE 1 CAPSULE BY MOUTH TWICE DAILY 03/09 completed Not Available Not Available Not Available clindamyc in HCl 300 mg capsule TAKE 1 CAPSULE BY MOUTH FOUR TIMES DAILY FOR 10 DAYS 10/14 completed Not Available Not Available Not Available ofloxacin 0.3 % eye drops 10/14 completed Not Available Not Available Not Available metoprolo l tartrate 100 mg tablet 04/24 completed Not Available Not Available Not Available hydrocodo ne 5 mg-acetam inophen 325 mg tablet TAKE 1 TABLET BY MOUTH EVERY 6 HOURS NEEDED FOR PAIN. 04/24 completed Not Available Not Available Not Available clopidogr el 75 mg tablet active Not Available Not Available Not Available sulfameth oxazole 800 mg-trimet hoprim 160 mg tablet TAKE 1 TABLET BY MOUTH TWICE DAILY FOR 2 WEEKS 02/07 completed Not Available Not Available Not Available aspirin 81 mg tablet,de layed release TAKE 1 TABLET BY MOUTH EVERY DAY active Not Available Not Available No t Available ketorolac 0.5 % eye drops 10/14 completed Not Available Not Available Not Available prednisol one acetate 1 % eye drops,marty pension 10/14 completed Not Available Not Available Not Available Novolin R Regular U-100 Insulin 100 unit/mL injection solution Take 5 units twice a day by injectio n route with meals for 90 days. 10/14 completed inject 35 units of novolin- N every morning and evening and 12 units of novolin- R three times daily with meals. Not Available Not Available Not Available cephalexi n 500 mg capsule 01/12 completed Not Available Not Available Not Available losartan 25 mg tablet Take 1 tablet every day by oral route for 90 days. active Not Available Not Available No t Available metoprolo l succinate ER 25 mg tablet,ex tended release 24 hr active Not Available Not Available Not Available insulin lispro (U-100) 100 unit/mL subcutane ous pen ADMINIST ER 25 UNITS UNDER THE SKIN THREE TIMES DAILY BEFORE MEALS active Not Available Not Available No t Available ciproflox acin 0.3 %-dexamet hasone 0.1 % ear drops,marty pension INSTILL 4 DROPS INTO THE LEFT EAR TWICE DAILY FOR 7 DAY 10/14 completed Not Available Not Available Not Available metoprolo l tartrate 25 mg tablet TAKE 1 TABLET TWICE DAILY 10/14 completed Not Available Not Available Not Available BD Insulin Syringe Ultra-Fin e 1 mL 30 gauge x 1/2 USE TO INJECT INSULIN DIRECTED FOUR TIMES DAILY active Not Available Not Available No t Available potassium chloride ER 20 mEq tablet,ex tended release 03/09 completed Not Available Not Available Not Available Abner Tomas U-100 Insulin 100 unit/mL (3 mL) subcutane ous ADMINIST ER 50 UNITS UNDER THE SKIN EVERY DAY AT BEDTIME 2024 active Not Available Not Available Not Avai lable FreeStyle David 3 Plus Sensor device APPLY 1 SENSOR ONCE EVERY 15 DAYS active Not Available Not Available No t Available Vitals Date Recorded Body height Body mass index (BMI) Body weight Heart rate Oxygen saturation Oxygen saturation in Arterial blood by Pulse oximetry Body temperature Systolic And Diastolic Provider Name and Address Organization Details Last Updated DateTime 5 175.26 cm 36.1 kg/m2 937158. 34 g 91 /min 97 % 97 % 98.5 [degF] 123/85 mm[Hg] Neisha Villalpando MA [facility] 5 09:10:36 Date Recorded Heart rate Systolic And Diastolic Provider Name and Address Organization Details Last Updated DateTime 01/14/2025 80 /min 148/85 mm[Hg] Leticia Crabtree MD Attn: Accounting,[address] [place], [address], [facility] 01/14/2025 10:30:47 Date Recorded Body height Body mass index (BMI) Body weight Heart rate Oxygen saturation Oxygen saturation in Arterial blood by Pulse oximetry Body temperature Systolic And Diastolic Provider Name and Address Organization Details Last Updated DateTime 5 175.26 cm 37.6 kg/m2 559040. 61 g 82 /min 97 % 97 % 97.8 [degF] 161/93 mm[Hg] Sabrina Farias MA [facility] 5 10:02:04 Date Recorded Systolic And Diastolic Provider Name and Address Organization Details Last Updated DateTime 02/08/2024 145/84 mm[Hg] Leticia Crabtree MD Attn: Accounting,[address] [place], [address], [facility] 02/08/2024 17:28:44 Date Recorded Body height Body mass index (BMI) Body weight Body temperature Oxygen saturation Oxygen saturation in Arterial blood by Pulse oximetry Heart rate Systolic And Diastolic Provider Name and Address Organization Details Last Updated DateTime 4 175.26 cm 35 kg/m2 097452. 39 g 97.5 [degF] 97 % 97 % 91 /min 163/94 mm[Hg] Jaime Rosales MA [facility] 4 16:44:48 Date Recorded Systolic And Diastolic Provider Name and Address Organization Details Last Updated DateTime 03/17/2024 150/90 mm[Hg] Leticia Crabtree MD Attn: Accounting,[address] [place], [address], [facility] 03/17/2024 18:08:30 Date Recorded Body height Body mass index (BMI) Body weight Heart rate Oxygen saturation Oxygen saturation in Arterial blood by Pulse oximetry Body temperature Systolic And Diastolic Provider Name and Address Organization Details Last Updated DateTime 175.26 cm 35 kg/m2 345826. 44 g 83 /min 97 % 97 % 97.6 [degF] 168/83 mm[Hg] Sabrina Farias MA [facility] 4 16:51:18 Social History Question Answer Notes LastModified by Organizat ion Details LastModified Time Tobacco Smoking Status Never Smoker Jaime Rosales MA null, [facility] 01/12/2023 16:08:51 What Was The Date Of Your Most Recent Tobacco Screening? 01/14/2025 Information not available 01/14/2025 Has Tobacco Cessation Counseling Been Provided? Yes Information not available 05/28/2023 On What Date Was Tobacco Cessation Counseling Provided? 01/14/2025 Information not available 01/14/2025 Sex: Unknown Functional Status Question Answer Note LastModified by Organizat ion Details LastModified Time Do you use any illicit or recreational drugs? No Information not available 03/09/2023 Do you or have you ever used any other forms of tobacco or nicotine? No Information not available 03/09/2023 What is your level of alcohol consumption? Occasional [email or web address] Information not available 10/14/2024 Mental Status None recorded. Family History Relationship Description Onset Age of this Age Resolved Age Notes LastModified by Organization Details LastModified Time Mother Diabetes mellitus 30 76 [email or web address] Not available 2022 16:23:04 Mother Hypertensive disorder 76 [email or web address] Not available 2022 16:23:28 Mother Heart disease 76 [email or web address] Not available 2022 16:23:43 Sister Diabetes mellitus 8 32 [email or web address] Not available 2022 16:23:04 Medical History No medical history recorded. Past Encounters Encounter ID Performer Location Encounter Start Date Encounter Closed Date Diagnosis/Indication Diagnosis SNOMED-CT Code Diagnosis ICD10 Code Diagnosis Note [id number] Kenton johnson MD [facility] [address] [facility] [address] [place] [address] 01/12/2023 15:51:41 01/15/2023 16:13:59 Adult health examination 795487190 Z00.00 HCM:PHQ 9: Not scoredBMI screen: BMI 34Labs: ACR and G4XNkuucdi s: Patient declined PCV 20 and [facility] counseling : Patient is a nonsmoker Type 1 alissa betes mellitus 10735102 E10.8 Last A1C:Goal A1C less than:7.0%C urrent Therapy:lo ng-acting insulin rapid/shor t-acting insulin Lantus 40 units qam and 40 units qhs and lispro 10 units bidStatin: yes Atorvastat in 80 mg qdACE/ARB: yes LosartanFo ot Exam:compl eted in the past 12 months-pos itiveNephr opathy Screening: duePneumov ax 20:Decline dEye Exam:due- recommende d annual dilated eye examPatien t Education: healthy diet:yesex ercise: no, patient recovering from R 1st toe amputation weight loss:yesfo ot care:yesco mplication s of uncontroll ed diabetes:y esmedicati on compliance :yesNext Visit: 3 month(s) Essential hypertension 34960914 I10 Hypertensi on classifica tion:BP Controlled : no BP 147/82-No medication side effects or concern of non-adhere nce.BP Goal: Less than 140/90 by JNC 8 guidelines Healthy Weight: 5'9= 128-168 lbs -Discussed : Low sodium balanced diet, moderate exercise at least 3-4 times per week for an average of 40 minutes, limiting alcohol to 1 drink per day (F) or 2 drinks per day (M), and smoking cessation if currently smoking.-R ecommended continued home BP monitoring and validating home BP monitor-Re commended 5 days BP check as discussed. -Advised against frequent NSAID use -Initial evaluation labs: A1CACR Indication for AMBP: Y Patient advised to check BP at least once or twice a weekPatien t agrees with plan YNext Visit: 3month(s) Pneumococc al vaccination declined 522365235 Z28.21 Patient declined PCV 20. Administra tion of diphtheria, pertussis, and tetanus vaccine 202726223 Z23 Due for TDaP. TDaP not available in the clinic at time of visit. Patient advised he can get TDaP at his pharmacy. Obesity 241706288 E66.9 BMI 34. [id number] Blas Nguyen MD [facility] [address] [address] 03/09/2023 10:56:31 03/12/2023 13:42:26 Type 1 diabetes mellitus 45362783 E10.9 Reports glucose levels are stabilizin g after hospitaliz ation- Currently on Lantus 40 units BID and Humalog 10 units BIDAC- On statin and ARBPlan- Follow up next month to follow up on diabetes Coronary atherosclerosis 072380850 I25.10 S/p CABG by Dr. Lester- On ASA and plavix, uncertain timeframe of plavix- On beta jong and statinPlan - Continue follow up with Dr. Lester History of coronary artery bypass grafting 389794523 Z95.1 S/p CABG by Dr. Lester- On ASA and plavix, uncertain timeframe of plavix- On beta jong and statinPlan - Continue follow up with Dr. Lester [id number] Blas Nguyen MD [facility] [address] [address] 04/24/2023 08:50:17 04/27/2023 11:03:21 Type 1 diabetes mellitus 32903735 E10.9 Last A1C:7-8% A1C 7.5 04/24/23Goa l A1C less than:7.0%C urrent Therapy:lo ng-acting insulin rapid/shor t-acting insulin Novolin N 40 units qam and 40 units qhs and Novolin R 10 units bid -100 units of insulin daily, having severe range hypoglycem iaDecrease to Novolin N 20 units qam and 20 units qhs and Novolin R 5 units bid-50 units of insulin daily.Pres cribed freestyle david 3 CGM. Patient to make appointmen t with Dr. Woods tin:yes Atorvastat in 80 mg qdACE/ARB: no Dr. Soria stopped the losartan 04/02/2023 2 patient's reports of fatigue and low blood pressure. Recommende dFoot Exam:compl eted in the past 12 months-pos itiveNephr opathy Screening: completed in the past 12 months- positive Recommend resuming losartan and continue 12.5 mg bid metorprolo l as prescribed by Dr. Hudson movax 20:Decline dEye Exam:due- recommende d annual dilated eye examPatien t Education: healthy diet:yesex ercise: no, patient recovering from R 1st toe amputation weight loss:yesfo ot care:yesco mplication s of uncontroll ed diabetes:y esmedicati on compliance :yesNext Visit: 1 month(s) Coronary atherosclerosis 411538313 I25.10 Continue to follow with Dr. Soria. Patient likely to require DAPT for at least 1 year after CABG so until 02/2024. Essential hypertension 91156010 I10 Hypertensi on classifica tion:BP Controlled : no BP 166/89-No medication side effects or concern of non-adhere nce.BP Goal: Less than 140/90 by JNC 8. guidelines RecommendH ealthy Weight: 5'9= 128-168 lbsContinu e metoprolol 12.5 bid and start -Discussed : Low sodium balanced diet, moderate exercise at least 3-4 times per week for an average of 40 minutes, limiting alcohol to 1 drink per day (F) or 2 drinks per day (M), and smoking cessation if currently smoking.-R ecommended continued home BP monitoring and validating home BP monitor-Re commended 5 days BP check as discussed. -Advised against frequent NSAID use -Initial evaluation labs: A1CACR Indication for AMBP: Y Patient advised to check BP at least once or twice a weekPatien t agrees with plan YNext Visit: 1month(s) [id number] Vidhi padilla MD [place] [address] [address] [facility] [address] [place] [address] 05/28/2023 09:02:04 05/31/2023 11:11:45 Type 1 diabetes mellitus 73772918 E10.9 Last A1C:7-8% A1C 7.6 05/28/23Goa l A1C less than:7.0%C urrent Therapy:lo ng-acting insulin rapid/shor t-acting insulin Novolin N 40 units qam and 40 units qhs and Novolin R 10 units bid -100 units of insulin daily, having severe range hypoglycem iaDecrease to Novolin N 20 units qam and 20 units qhs and Novolin R 5 units bid-50 units of insulin daily.Pres cribed freestyle david 3 CGM. Patient to make appointmen t with Dr. Woods tin:yes Atorvastat in 80 mg qdACE/ARB: no Dr. Soria stopped the losartan 04/02/202311/09 patient's reports of fatigue and low blood pressure. Recommende dFoot Exam:compl eted in the past 12 months-pos itive Continue to follow with Podiatry Dr. Flores every 2 weeks.Neph ropathy Screening: completed in the past 12 months- positive Recommend resuming losartan and continue 12.5 mg bid metoprolol as prescribed by Dr. Hudson movax 20:Decline dEye Exam:due- recommende d annual dilated eye examPatien t Education: healthy diet:yesex ercise: no, patient recovering from R 1st toe amputation weight loss:yesfo ot care:yesco mplication s of uncontroll ed diabetes:y esmedicati on compliance :yesNext Visit: 4 month(s) Colon canc er screening declined 1596854487 9109 Z53.20 Patient respectful ly declined colon cancer screening. Patient offered options of fit test, cologuard, and screening colonoscop y, risks and benefits discussed and patient declined all of them. Tetanus di phtheria and acellular pertussis vaccination declined [id number] 9943122 Z28.20 Patient respectful ly declined TDaP HIV screen ing declined 2368391902 46070 Z53.20 Patient respectful ly declined HIV screening Essential hypertension 38119716 I10 Hypertensi on classifica tion:BP Controlled : no BP 166/89-No medication side effects or concern of non-adhere nce.BP Goal: Less than 140/90 by JNC 8. guidelines RecommendH ealthy Weight: 5'9= 128-168 lbsContinu e metoprolol 12.5 bid and start -Discussed : Low sodium balanced diet, moderate exercise at least 3-4 times per week for an average of 40 minutes, limiting alcohol to 1 drink per day (F) or 2 drinks per day (M), and smoking cessation if currently smoking.-R ecommended continued home BP monitoring and validating home BP monitor-Re commended 5 days BP check as discussed. -Advised against frequent NSAID use -Initial evaluation labs: A1CACR Indication for AMBP: Y Patient advised to check BP at least once or twice a weekPatien t agrees with plan YNext Visit: 1month(s) Diabetic foot ulcer 3710 83643 E13.621 I called and spoke to patient on the phone 05/28/2023 at 9:13 AM. Patient reports he had a blister in September 2022 that busted and became an ulcer. Patient has been seeing his Computer Numerical Control Operator every 2 weeks to manage it. Patient respectful ly declined XR and wound care referral at this visit 05/28/2023 and wants to continue having Podiatry management . 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 [id number] Vidhi padilla MD [facility] [address] [facility] [address] [place] [address] 02/08/2024 16:32:54 02/11/2024 14:54:33 Type 1 diabetes mellitus 38194389 E10.9 Last A1C:7-8% A1C 8.7 02/08/24Goal A1C less than:7.0%C urrent Therapy:lo ng-acting insulin rapid/shor t-acting insulin Lantus pen 35 units every evening after dinner and Novolin R take 5 units twice a day with meals. Plan to order C-peptide and autoantibo dy testing at next visit. Will also have patient meet with Ella Goodman.St atin:yes Atorvastat in 80 mg qdACE/ARB: no Dr. Soria stopped the losartan 04/02/202311/09 patient's reports of fatigue and low blood pressure.F oot Exam:compl eted in the past 12 months-pos itive Continue to follow with Podiatry Dr. Flores every 2 weeks.Neph ropathy Screening: completed in the past 12 months- positivePn eumovax 20:Decline dEye Exam:due- recommende d annual dilated eye examPatien t Education: healthy diet:yesex ercise: no, patient recovering from R 1st toe amputation weight loss:yesfo ot care:yesco mplication s of uncontroll ed diabetes:y esmedicati on compliance :yesNext Visit: 1 month(s) Essential hypertension 26868394 I10 Hypertensi on classifica tion:BP Controlled : no BP 166/89.Pat ient and report BP 120s/80s at home. Will reassess at next visit in 1 month. Antihypert ensives manageb by Cardiologi st Dr. Soria.-No medication side effects or concern of non-adhere nce.BP Goal: Less than 140/90 by JNC 8. guidelines RecommendH ealthy Weight: 5'9= 128-168 lbsContinu e metoprolol 12.5 bid and start -Discussed : Low sodium balanced diet, moderate exercise at least 3-4 times per week for an average of 40 minutes, limiting alcohol to 1 drink per day (F) or 2 drinks per day (M), and smoking cessation if currently smoking.-R ecommended continued home BP monitoring and validating home BP monitor-Re commended 5 days BP check as discussed. -Advised against frequent NSAID use -Initial evaluation labs: A1CACR Indication for AMBP: Y Patient advised to check BP at least once or twice a weekPatien t agrees with plan YNext Visit: 1month(s) Pain of ear 673197738 H9 2.09 Acute. L ear EAC erythemato us. Rx for 7 day course of ciprodex. [id number] ARIANNA LEWIS DO [facility] 47 3 [facility] roberto [address] [place] [address] 03/17/2024 16:28:29 03/19/2024 15:17:58 Type 1 diabetes mellitus 94942002 E10.9 Last A1C: 9.0 03/14/24Goal A1C less than: 7.0Current Therapy: long acting insulin, short-acti ng insulin.La ntus too expensive. Patient purchases Novolin OTC at [facility]. Patient and advised to inject 35 units of novolin-N every morning and evening and 12 units of novolin-R three times daily with meals.Stat in: YACE/ARB: NFoot Exam: Completed 02/08/24 positive for neuropathy Nephropath y Screening: negative 03/14/24Pneu movax 23: Due for PCV 20Eye Exam: Patient Education: healthy diet: yesexercis e: yesweight loss: yesfoot care: yescomplic ations of uncontroll ed diabetes: yesmedicat ion compliance : yesNext Visit: Phone visit 2 weeks. Patient diagnosed IDDM1 at 31 at [facility], given management unlikely to change, will not order TRE or other insulin antibody testing. Essential hypertension 48784834 I10 Hypertensi on classifica tion:BP Controlled : no BP 166/83 automatic, repeat 150/90 manual.Pat ient and report BP 120s/80s at home and at Dr. Soria office at last visit 02/06/24. Patient to keep logs and will discuss at phone visit in 2 weeks. Antihypert ensives managed by Cardiologi st Dr. Soria.-No medication side effects or concern of non-adhere nce.BP Goal: Less than 140/90 by JNC 8. guidelines RecommendH ealthy Weight: 5'9= 128-168 lbsContinu e metoprolol 12.5 bid and start -Discussed : Low sodium balanced diet, moderate exercise at least 3-4 times per week for an average of 40 minutes, limiting alcohol to 1 drink per day (F) or 2 drinks per day (M), and smoking cessation if currently smoking.-R ecommended continued home BP monitoring and validating home BP monitor-Re commended 5 days BP check as discussed. -Advised against frequent NSAID use -Initial evaluation labs: Labs reviewed from 03/14/24. Indication for AMBP: Y Patient advised to check BP at least once or twice a weekPatien t agrees with plan YNext Visit: 1month(s) [id number] Andrea Huerta DO [facility] 47 [address] [facility] [address] [place] [address] 04/15/2024 08:39:02 04/17/2024 13:11:07 Type 1 diabetes mellitus 58885343 E10.9 Last A1C: 9.0 03/14/24Goal A1C less than: 7.0Current Therapy: long acting insulin, short-acti ng insulin.La ntus too expensive. Patient purchases Novolin OTC at [facility]. Patient and advised to inject 35 units of novolin-N every morning and evening and 12 units of novolin-R three times daily with meals.Stat in: YACE/ARB: NFoot Exam: Completed 02/08/24 positive for neuropathy Nephropath y Screening: negative 03/14/24Pneu movax 23: Due for PCV 20Eye Exam: Patient Education: healthy diet: yesexercis e: yesweight loss: yesfoot care: yescomplic ations of uncontroll ed diabetes: yesmedicat ion compliance : yesNext Visit: Phone visit 2 weeks. Patient diagnosed IDDM1 at 31 at [facility], given management unlikely to change, will not order TRE or other insulin antibody testing.04/15/24: 25 u tid 75 u daily, and ssi. endo refer Phone visit. Patient having spikes to 300 postprandi al and lows to 61 after lunch once spike ends. Patient advised to set CGM alert for 73 so he has time to remove his PPE to get a snack. Patient advised to read labels and eat 45-60g carb with meals and 15g carb or less for snacks. RTC 2 months f/u. [id number] ARIANNA LEWIS DO [facility] 47 [address] [facility] [address] [place] [address] 10/14/2024 09:00:54 10/15/2024 16:22:11 Type 1 diabetes mellitus 46171024 E10.9 Last A1C: 8.4 10/14/24Goal A1C less than: 7.0Current Therapy: long acting insulin, short-acti ng insulin.Nabil acharya seen by endocrinol elvin Lyles at [facility] and patient has appointmen t to see her in 6 months. Given A1C 8.4 and glucoses 200+ past 90 days increasing long acting to 50 u and short acting to 20 u tids AC. Patient advised to reduce long acting if AM fasting glucose 60s or less. Patient advised to reduce short acting if postprandi al glucose 60s or less.Stati n: YACE/ARB: YFoot Exam: Due 03/06/25. Postop appointmen t Dr. Flores .P atient respectful ly declined DM foot exam 10/14/24Neph ropathy Screening: negative 03/14/24PCV 20:Patient declinedEy e Exam: Due 02/07/25 Patient Education: healthy diet: yesexercis e: yesweight loss: yesfoot care: yescomplic ations of uncontroll ed diabetes: yesmedicat ion compliance : yesNext Visit: 3 mos Patient diagnosed IDDM1 at 31 at [facility], given management unlikely to change, will not order TRE or other insulin antibody testing. Obesity 106733822 E66.9 BMI 36 Colon [facility] er screening declined [id number] 9109 Z53.20 Patient respectful ly declined colon cancer screening. Patient offered options of fit test, cologuard, and screening colonoscop y, risks and benefits discussed and patient declined all of them. Pneumococc al vaccination declined 997255624 Z28.21 Patient respectful ly declined PCV 20. Tetanus di phtheria and acellular pertussis vaccination declined [id number] 0102453 Z28.20 Patient respectful ly declined TDaP Essential hypertension 87651648 I10 Hypertensi on classifica tion:BP Controlled : yes BP 123/85-No medication side effects or concern of non-adhere nce.BP Goal: Less than 140/90 by JNC 8.Healthy Weight: 5'9= 128-168 lbs -Discussed : Low sodium balanced diet, moderate exercise at least 3-4 times per week for an average of 40 minutes, limiting alcohol to 1 drink per day (F) or 2 drinks per day (M), and smoking cessation if currently smoking.-R ecommended continued home BP monitoring and validating home BP monitor-Re commended 5 days BP check as discussed. -Advised against frequent NSAID use Indication for AMBP: Y Patient advised to check BP at least once or twice a weekPatitheron t agrees with plan YNext Visit: 3month(s) [id number] Karl Connor MD [facility] [address] [address] 01/14/2025 09:34:45 01/21/2025 13:26:55 Type 1 diabetes mellitus 11966195 E10.9 Last A1C: 7.1Goal A1C less than: 7.0Current Therapy: long acting insulin, short-acti ng insulin.Nabil acharya seen by endocrinol ogy Dr. Giselle Lyles at [facility] and patient has appointmen t to see her in 6 months. Given A1C 8.4 and glucoses 200+ past 90 days increasing long acting to 50 u and short acting to 20 u tids AC. Patient advised to reduce long acting if AM fasting glucose 60s or less. Patient advised to reduce short acting if postprandi al glucose 60s or less.Stati n: YACE/ARB: YFoot Exam: Postop appointmickey t Dr. Flores .P atient respectful ly declined DM foot exam 01/14/25Neph ropathy Screening: negative 03/14/24PCV 20:Patient declinedEy e Exam: Due 02/07/25 Patient Education: healthy diet: yesexercis e: yesweight loss: yesfoot care: yescomplic ations of uncontroll ed diabetes: yesmedicat ion compliance : yesNext Visit: 3 mos Patient diagnosed IDDM1 at 31 at [facility], given management unlikely to change, will not order TRE or other insulin antibody testing. Continue DM management with Endo Essential hypertension 66510100 I10 Hypertensi on classifica tion:BP Controlled : no 161/93, 148/85. Reports BP 120s/80s at home-No medication side effects or concern of non-adhere nce.BP Goal: Less than 140/90 by JNC 8.Healthy Weight: 5'9= 128-168 lbs -Discussed : Low sodium balanced diet, moderate exercise at least 3-4 times per week for an average of 40 minutes, limiting alcohol to 1 drink per day (F) or 2 drinks per day (M), and smoking cessation if currently smoking.-R ecommended continued home BP monitoring and validating home BP monitor-Re commended 5 days BP check as discussed. -Advised against frequent NSAID use Indication for AMBP: Y Patient advised to check BP at least once or twice a weekPatien t agrees with plan YNext Visit: 1month(s) bring cuff and logs Dysphagia 60513643 R13.1 0 Dysphagia to solids present for 2 years. Ddx: achalasia vs stricture vs malignancy vs other. Ordered barium swallow. No B symptoms concerning for malignancy . Referred to GI. Tetanus di phtheria and acellular pertussis vaccination declined [id number] 2259316 Z28.20 Patient respectful ly declined TDaP HIV screen ing declined [id number] 62315 Z53.20 Patient respectful ly declined HIV screening Pneumococc al vaccination declined 056625316 Z28.21 Patient respectful ly declined PCV 20. Health Concerns Section Related Observation LastModified by Organization Detai ls LastModified Time None Recorded Concern Status LastModified by Organization Details LastModified Time None Recorded Advance Directives Directive None Recorded Payers Encounter Date Sequence Insurance Name Policy Number Policy Day Covered Member ID Day Member ID Guarantor Name 02/08/2024 1 [employer] [id number] Deejay [place] [id number] De[place] 03/17/2024 1 [employer] [id number] Deejay [place] [id number] Deejay [place] 04/15/2024 1 [employer] [id number] Deejay [place] [id number] De[place]ay [place] 10/14/2024 1 [employer] [id number] Deejay [place] [id number] Deejay [place] 01/14/2025 1 [employer] [id number] Deejay [place] [id number] Deejay [place] Notes Date Note Type Note Provider Name and Address Organization Details Recorded Time 02/08/2024 text/html Patient is a 57 YO M h/o IDDM 1 with neuropathy and Hx retinal hemorrhages, HTN, CAD with multivessel disease scheduled for CABG, presenting for f/u and [employer]ML[employer] paperwork HTN: BP at home 128/74 02/08/2024 in AM. Patient reports tension HANEY 3-4 times per week. Patient denies CP, SOB. IDDM1: Patient reports hypoglycemic episodes in the middle of the night. Patient reports new numbness and tingling in L 2nd, 3rd, and 4th fingers. Patient c/o L ear plugged for 2 weeks. Patient reports L ear hearing loss. Patient denies ringing in ears. Vidhi Frausto MD Attn: Accounting,[address] [facility], [place], [address], [facility] 02/10/2024 11:22:48 03/17/2024 text/html Patient is a 57 YO M h/o IDDM 1 with neuropathy and Hx retinal hemorrhages, HTN, CAD with multivessel disease scheduled for CABG, presenting for f/u. Patient denies HANEY, CP, and SOB. Patient reports that his Salesperson [employer] Dr. Soria manages his BP and he sees him every 6 months. Patient reports his BP is WNL at Dr. Soria office. IDDM1: Patient and report novolin and lantus not helping. Patient's reports fasting 300s. Patient reports diagnosed age [age] at [facility]. ARIANNA LEWIS DO Attn: Accounting,[address] [facility], [place], [address], [facility] 03/19/2024 13:02:32 04/15/2024 text/html Patient reports spikes after meals. Patient reports low of 65 AM 04/14/24 and 61 AM 04/14/24. Andrea Huerta DO Attn: Accounting,[address] [facility], [place], [address], [place] [facility] 04/16/2024 13:07:42 10/14/2024 text/html 58 YO M DM f/u.Glucose running in 300sDenies CP, SOB, polydypsia, polyuria. ARIANNA LEWIS DO Attn: Accounting,[address] [facility], [place], [address], [place] [facility] 10/14/2024 09:42:31 01/14/2025 text/html 59 YO M. Patient 's BP at home 120s/70s.Patient denies CP, SOB.Patient reports dysphagia with solids for >2 years. Weight gain 10 lbs. Denies night sweats. Karl Connor MD Attn: Accounting,[address] [facility], [place], [address], [facility] - [facility] 01/20/2025 15:28:05
--- NOTE | 2025-03-04 09:42 | SUR.PREOP ---
Blood Glucose 251, Dr. Thompson notified, will continue to monitor.
[2025-03-04] MEDS: LACTATED RINGERS 1,000 ML 150 ML IV CONT (09:50)
[2025-03-04 09:51] VITALS: BP 177/75; PULSE 87; RESP 20; TEMP 36.1; O2SAT 97
--- NOTE | 2025-03-04 10:21 | WPDANESEPPF ---
Anes - Initial Pre Proc Eval Procedure: Operation Date: 03/04/25 11:00 Proposed Procedures p Esophagogastroduodenoscopy - Leonel Coleman MD Date/Time: 03/04/25 10:21 Surgeon: Leonel Coleman MD Pre Op Diagnosis: Encounter for screening for malignant neoplasm of Patient Data Age: 59 Gender: M Height: 1.75 m Weight: 114.8 kg Last Vital Signs Temp 96.9 F L 03/04/25 09:51 Pulse 87 03/04/25 09:51 Resp 20 03/04/25 09:51 BP 177/75 H 03/04/25 09:51 Pulse Ox 97 03/04/25 09:51 O2 Del Method Room Air 03/04/25 09:51 Allergies Allergy/AdvReac Type Severity Reaction Status Date / Time No Known Allergies Allergy Verified 03/04/25 09:40 Home Medications ?Medication ?Instructions ?Recorded ?Confirmed ?Type atorvastatin 80 mg tablet 80 mg PO DAILY 02/23/25 03/04/25 History clopidogrel 75 mg tablet 75 mg PO DAILY 02/23/25 03/04/25 History insulin glargine 100 unit/mL (3 50 unit subcut QPM 02/23/25 03/04/25 History mL) subcutaneous pen (Basaglar KwikPen U-100 Insulin) insulin lispro 100 unit/mL 25 unit subcut TID 02/23/25 03/04/25 History subcutaneous pen losartan 25 mg tablet 12.5 mg PO DAILY 02/23/25 03/04/25 History metoprolol succinate 25 mg 12.5 mg PO DAILY 02/23/25 03/04/25 History tablet,extended release 24 hr Patient hx anesthesia problems: none Family hx anesthesia problems: none Results Review: All pre-operative results and documents have been reviewed as part of the pre-operative evaluation. [facility] Past Medical History Medical History (Updated 08/24/21 @ 00:01 by Jimbo Boudreaux) Diabetes Social History Social History (Updated 08/23/21 @ 19:43 by Kate Woods, SENIOR CONTROLS ENGINEER) Smoking status: Never smoker Alcohol intake: never Substance use: never Substance use type: does not use Living arrangements: with family Occupation/Education: occupation Gender identity (if verbalized by the patient): Male Anes - Eval Final PreProcedure Day of Procedure 03/04/25 10:21 Patient weight: obese Heart: regular rate and rhythm Lungs: clear to auscultation Airway: Mallampati scale class III Neurological: alert and oriented Last oral intake: >/= 8 hours ASA classification: III Emergent: no Anesthetic plan: proceed Anesthesia type and monitoring: general GIVS and standard monitoring Results Review: All pre-operative results and documents have been reviewed as part of the pre-operative evaluation. Informed Consent: The patient's anesthetic plan and its attendant risks and benefits were discussed with the patient/family/POA. Questions were solicited and answers provided to the satisfaction of the patient/family/POA.
--- NOTE | 2025-03-04 10:23 | P.HP_ITS ---
History of Present Illness History of Present Illness Consent: Risks, benefits, and alternatives have been discussed and questions answered. Patient agrees to proceed with procedure. Chief complaint: dysphagia Narrative: Venkat Christianson is a 59 year old male with dysphagia for over 2 years, never had egd Review of Systems Review of Systems: All systems reviewed & are unremarkable except as noted in HPI and below PMFSH Past Medical History Medical History (Updated 03/04/25 @ 10:28 by Leonel Coleman MD) Dysphagia Diabetes Social History Social History (Updated 08/23/21 @ 19:43 by Kate Woods, SUPERVISOR STITCHING DEPARTMENT) Smoking status: Never smoker Alcohol intake: never Substance use: never Substance use type: does not use Living arrangements: with family Occupation/Education: occupation Gender identity (if verbalized by the patient): Male Meds Home Medications and Allergies Home Medications ?Medication ?Instructions ?Recorded ?Confirmed ?Type atorvastatin 80 mg tablet 80 mg PO DAILY 02/23/25 03/04/25 History clopidogrel 75 mg tablet 75 mg PO DAILY 02/23/25 03/04/25 History insulin glargine 100 unit/mL (3 50 unit subcut QPM 02/23/25 03/04/25 History mL) subcutaneous pen (Basaglar KwikPen U-100 Insulin) insulin lispro 100 unit/mL 25 unit subcut TID 02/23/25 03/04/25 History subcutaneous pen losartan 25 mg tablet 12.5 mg PO DAILY 02/23/25 03/04/25 History metoprolol succinate 25 mg 12.5 mg PO DAILY 02/23/25 03/04/25 History tablet,extended release 24 hr Allergies Allergy/AdvReac Type Severity Reaction Status Date / Time No Known Allergies Allergy Verified 03/04/25 09:40 Vital Signs Vital Signs - 24 hr 03/04/25 09:51 Temperature 96.9 F L Pulse Rate 87 Respiratory Rate 20 Blood Pressure 177/75 H Pulse Oximetry 97 Oxygen Delivery Room Air Exam Const: General: comfortable and no acute distress HENMT: Face/Nose/Sinus: Normal nares present Eyes: General: appearance normal, both eyes and all related structures Neck: Neck: no JVD Resp: Auscultation: clear to auscultation bilaterally Cardio: Rate: regular rate Rhythm: regular rhythm GI: Inspection: non-distended GI Palp: Yes Soft to palpation Skin: General skin exam: normal color Neuro: General: gait normal Speech: normal speech Extrem: General: normal to inspection Psych: Mental Status: mental status grossly normal Assessment and Plan Assessment and plan (1) Dysphagia: Code(s): R13.10 - Dysphagia, unspecified Status: Acute Assessment and Plan: egd
--- NOTE | 2025-03-04 10:36 | S_PTH ---
PATIENT: Venkat Christianson LOC: [facility]#:[id number] AGE/SX: 59/M ROOM: RE03/04/[address]: Leonel Coleman MD : 1965 BED: DIS: 03/04/2025 SPEC #: [id number] RECD: 03/04/25 11:14 STATUS: CATALINA RE #: [id number] DARWIN: 03/04/25 10:[address]: Leonel Coleman DEPT: [facility] Surgical RECD BY: Jennifer King ENTERED: 03/04/25 11:15 SP TYPE: Surgical OTHR DR: Rosalee Haas, Tissues: A - Gastric Biopsy B - Esophageal Biopsy Procedures: Hematoxylin and Eosin Stain Gross and Microscopic Level 4
[2025-03-04 10:41] VITALS: BP 142/66; PULSE 73; RESP 24; O2SAT 96
[2025-03-04 10:51] VITALS: BP 165/75; PULSE 75; RESP 26; O2SAT 97
--- NOTE | 2025-03-04 10:57 | SUR.PHASEII ---
patients blood sugar is 188 via continuous glucose monitor.
[2025-03-04 11:01] VITALS: BP 174/77; PULSE 80; RESP 22; O2SAT 97
--- NOTE | 2025-03-04 11:10 | SUR.PHASEII ---
was notified of patients blood pressure and blood sugar, pt stated I feel fine. Patient stated I haven't taken the rest of my blood pressure medications and I haven't had any insulin today. was okay with discharging patient. Patient was educated to take rest of home medications and given physicians number is he had any questions or concerns.
== END 2025-03-04 11:19 | disposition home or self-care (01) ==
PROVIDERS: PCP Family Medicine; Visit Provider Internal Medicine Gastroenterology
PROC: 0DJ08ZZ Inspection of Upper Intestinal Tract, Via Natural or Artificial Opening Endoscopic (ICD-10-PCS; CPT 43239; principal; 2025-03-04 11:00)
DX: K29.50 Unspecified chronic gastritis without bleeding (principal); B96.81 Helicobacter pylori [H. pylori] as the cause of diseases classified elsewhere; E11.9 Type 2 diabetes mellitus without complications; E66.9 Obesity, unspecified; Z68.37 Body mass index [BMI] 37.0-37.9, adult; Z79.02 Long term (current) use of antithrombotics/antiplatelets; Z79.4 Long term (current) use of insulin
CPT/HCPCS: 43239; 43450; 88305; J2003; J2704; J7120